=== PATIENT | female | born 1980 ===

== ENCOUNTER 2022-02-27 00:59 | Emergency (ER) | payer SELFPAY ==
[2022-02-27 03:31] LABS: #Basophils 0.1 10x3/uL (0.0-0.2); #Eosinphils 0.1 10x3/uL (0.0-0.5); #Monocytes 0.6 10x3/uL (0.0-1.1); %Basophils 0.6 % (0.0-2.0); %Eosinophils 0.5 % (0.0-6.0); %Lymphocytes 18.4 % (18.0-47.0); %Monocytes 5.3 % (0.0-10.0); %Neutrophils 74.8 % (40.0-75.0); Mean Corpuscular HGB CONC 34.7 g/dL (32.0-36.0); Mean Corpuscular Hemoglobin 29.6 pg (27.0-33.0); Mean Corpuscular Volume 85.4 fl (81.6-98.3); Mean Platelet Volume 9.5 fl (7.4-10.4); Platelet Count 259 10x3/uL (150-450); RBC Distribution Width 13.2 % (11.5-14.5); Red Blood Cell (RBC) Count 4.05 10x6/uL (3.90-5.03); White Blood Cell (WBC) Count 10.6 10x3/uL (3.5-10.5)
[2022-02-27 04:14] LABS: SARS-CoV-2 NAA Rapid Test Not Detected (NotDetected)
[2022-02-27] MEDS ORDERED: EPINEPHrine 1 MG/ML AMP ONE (07:31)
[2022-02-27] MEDS ORDERED: Bupivacaine PF 0.5% 30 ML VIAL ONE (07:31)
[2022-02-27] MEDS ORDERED: Dexmedetomidine 200 MCG/2 ML VIAL ONE (08:11)
[2022-02-27] MEDS ORDERED: Fentanyl 100 MCG/2 ML VIAL ONE (08:12)
[2022-02-27] MEDS ORDERED: PROPOFOL 20 ML ONE (08:12)
[2022-02-27] MEDS ORDERED: CEFAZOLIN 1 GM VIAL ONE (08:35)
[2022-02-27] MEDS ORDERED: ePHEDrine Sulfate 50 MG/10 ML VIAL ONE (08:48)
[2022-02-27] MEDS ORDERED: Glycopyrrolate 0.2 MG/ML 5 ML SYRINGE ONE (09:17)
[2022-02-27] MEDS ORDERED: HYDROcodone/Acetaminophen 5/325 mg Tablet ONE (10:28)
[2022-02-27] MEDS ORDERED: Ondansetron PF 4 MG/2 ML Vial IVP PRN (10:29)
[2022-02-27] MEDS ORDERED: HYDROcodone/Acetaminophen 5/325 mg Tablet PO PRN ×2 (10:29)
[2022-02-27] MEDS ORDERED: Simethicone Chewable 80 MG TAB PO PRN (10:29)
[2022-02-27] MEDS ORDERED: Zolpidem Tartrate 5 MG TAB PO PRN (10:29)
[2022-02-27] MEDS ORDERED: Lactated Ringer's 1,000 ML IV SCH (10:30)
[2022-02-27] MEDS ORDERED: Sodium Chloride 0.9% 1,000 ML IV SCH (10:30)
[2022-02-27] MEDS ORDERED: Ibuprofen 800 MG TAB PO SCH (14:00)
== END 2022-02-27 12:45 | disposition home or self-care (01) ==
LOC: CSHERS 00:59
DX: O00.80 Other ectopic pregnancy without intrauterine pregnancy (principal); Z20.822 Contact with and (suspected) exposure to COVID-19
CPT/HCPCS: 36415; 76856; 85025; 86850; 86900; 86901; C1713; J0171; J0690; J2704; J3010; S0020; U0002